=== PATIENT | female | born 1940 | race Caucasian/White ===

== ENCOUNTER → 2018-04-29 | Emergency (ER) | payer OTHER ==
[~2018-04-29] VITALS: Ht 167.6 cm; Wt 71.7 kg
[~2018-04-29] MED LIST: ACULAR1 DROP OS; ADULT LOW DOSE81 MG PO; ASPIR 8181 MG PO; CITALOPRAM HBR10 MG PO; COMPOUND DRUG; CYCLOBENZAPRINE5 MG PO; ESTRACE0.5 MG PO; LEVOTHYROXINE25 MCG PO; LIPITOR40 MG PO; MEDROL4 MG PO; MELOXICAM7.5 MG PO; METOPROLOL TART50 MG PO; NORCO 5-325 TA1 EACH PO; OCUFLOX5 ML OPTH; PROGESTERONE; ZOFRAN ODT4 MG PO
--- OUTSIDE RECORDS SUMMARY | ~2018-04-29 | XMS | Clinical Summary ---
Demographics + + + | Address | [address] | | | [place] [address] | + + + | Home Phone | | + + + | Preferred Language | Unknown | + + + | Marital Status | | + + + | Hindu Affiliation | 1041 | + + + | Race | Unknown | + + + | Ethnic Group | Unknown | + + + Author + + + | Author | [facility] | + + + | Organization | [facility] | + + + | Address | Unknown | + + + | Phone | Unavailable | + + + Support + + + + + | Name | Relationship | Address | Phone | + + + + + | Viri | ECON | [address] | | | [place] | | [place] | | | | | [phone] | | + + + + + | Raissa Barnes | ECON | Unknown | | + + + + + Care Team Providers + +------+ + | Care Contact Center Agent Name | Role | Phone | + +------+ + | Yasmin Haas PA-C | PP | | + +------+ + Allergies + + + + + + | Active Allergy | Reactions | Severity | Noted | Comments | | | | | Date | | + + + + + + | Sulfa Antibiotics | Swelling | Medium | 04/29/20 | | | | | | 14 | | + + + + + + Current Medications + + +--------+---------+------+------+-------+ | Prescription | Sig. | Disp. | Refills | Star | End | Statu | | | | | | t | Date | s | | | | | | Date | | | + + +--------+---------+------+------+-------+ | Multiple Vitamin | Take 1 capsule by | | | | | Activ | | (MULTIVITAMIN) | mouth daily. | | | | | e | | capsule | | | | | | | + + +--------+---------+------+------+-------+ | progesterone | Apply 0.625 mLs | | | | | Activ | | micronized in | topically daily. 100 | | | | | e | | hormone cream base | mg/mL cream - apply | | | | | | | | 1/8 teaspoon on arm | | | | | | | | daily | | | | | | + + +--------+---------+------+------+-------+ | aspirin EC 325 MG | Take 1 tablet by | 30 | 11 | 04/10 | | Activ | | EC tablet | mouth nightly. | tablet | | 01/26 | | e | | | | | | 14 | | | + + +--------+---------+------+------+-------+ | Acetaminophen 650 | Take by mouth. | | | | | Activ | | MG TABS | | | | | | e | + + +--------+---------+------+------+-------+ | oxycodone (OXY-IR) | Take 5 mg by mouth | | | | | Activ | | 5 MG capsule | every 4 (four) hours | | | | | e | | | as needed. | | | | | | + + +--------+---------+------+------+-------+ | estriol-estradiol | Apply topically | | | | | Activ | | (BIEST 50-50) 50-50 | daily. Apply 0.25 mL | | | | | e | | cream | (1 click) of a 1 | | | | | | | | mg/mL preparation | | | | | | | | topically to thin | | | | | | | | skinned area daily. | | | | | | + + +--------+---------+------+------+-------+ | progesterone | Place 100 mg | | | | | Activ | | (ENDOMETRIN) 100 MG | vaginally 2 (two) | | | | | e | | vaginal insert | times daily. | | | | | | + + +--------+---------+------+------+-------+ | simvastatin | Take 1 tablet by | 90 | 3 | 10/2 | | Activ | | (ZOCOR) 40 MG | mouth nightly. | tablet | | 2/20 | | e | | tabletIndications: | | | | 14 | | | | CAD (coronary artery | | | | | | | | disease) | | | | | | | + + +--------+---------+------+------+-------+ | metoprolol | Take 1 tablet by | 90 | 3 | 10/2 | | Activ | | (TOPROL-XL) 50 MG 24 | mouth daily. | tablet | | 2/20 | | e | | hr | | | | 14 | | | | tabletIndications: | | | | | | | | CAD (coronary artery | | | | | | | | disease) | | | | | | | + + +--------+---------+------+------+-------+ Active Problems + + + | Problem | Noted Date | + + + | CAD (coronary artery disease) | 05/30/2014 | + + + + + | Last Assessment & Plan: Recent NSTEMI s/p CABG X3 CRAIN to | | LAD, SVG to Diag and OM [facility]2014 [facility] | re[facility]Feels improved- still have some tenderness from the surgical | | siteLV EF normal Continue ASA, Statin.Will change Metoprolol to | | Toprol XL 50mg dailyCounseled diet, exercise, physical | | activity.She is from [place], [place] and will be finding a | | agate setter there for her chronic needs.Will f/u with me as | | needed. | |Will f/u with me as needed. | | | + + + + + | NSTEMI (non-ST elevated myocardial infarction) | 04/29/2014 | + + + | History of COPD | 04/29/2014 | + + + | Atypical chest pain | 04/29/2014 | + + + | Elevated blood pressure reading without diagnosis of hypertension | 04/29/2014 | + + + | Cardiac enzymes elevated | 04/29/2014 | + + + Encounters +--------+ + + + + | Date | Type | Specialty | Care Team | Description | +--------+ + + + + | 04/06/ | Documentati | | Brenda Trujillo, | | | 2017 | on Only | | MD | | +--------+ + + + + from Last 3 Months Family History + + +------+ + | Medical History | Relation | Name | Comments | + + +------+ + | Heart disease | Father | | | + + +------+ + | Stroke | Father | | | + + +------+ + | Heart disease | Mother | | | + + +------+ + + +------+--------+ + | Relation | Name | Status | Comments | + +------+--------+ + | Father | | | | + +------+--------+ + | Mother | | | | + +------+--------+ + Social History + +-------+ +--------+------+ | Tobacco Use | Types | Packs/Day | Years | Date | | | | | Used | | + +-------+ +--------+------+ | Former Smoker | | 0.5 | 20 | | + +-------+ +--------+------+ + + | Comments: quit about 30 yrs ago | + + + + +---------+ + | Alcohol Use | Drinks/We | oz/Week | Comments | | | ek | | | + + +---------+ + | Yes | 1 | 1.2 | nightly | | | Glasses | | | | | of wine | | | | | 1 Shots | | | | | of liquor | | | + + +---------+ + + + + | Sex Assigned at | Date Recorded | | | | + + + | Not on file | | + + + Last Filed Vital Signs + + + + | Vital Sign | Reading | Time Taken | + + + + | Blood Pressure | 118/68 | 05/30/2014 1:35 PM PDT | + + + + | Pulse | 86 | 05/30/2014 1:35 PM PDT | + + + + | Temperature | 35.9 C (96.7 F) | 05/23/2014 12:44 PM PDT | + + + + | Respiratory Rate | 16 | 05/08/2014 11:47 AM PDT | + + + + | Oxygen Saturation | 98% | 05/30/2014 1:35 PM PDT | + + + + | Inhaled Oxygen | - | - | | Concentration | | | + + + + | Weight | 67.1 kg (148 lb) | 05/30/2014 1:35 PM PDT | + + + + | Height | 165.1 cm (5' 5") | 05/30/2014 1:35 PM PDT | + + + + | Body Mass Index | 24.63 | 05/30/2014 1:35 PM PDT | + + + + Plan of Treatment +--------+ + + + + | Date | Type | Specialty | Care Team | Description | +--------+ + + + + | 12/28/ | Initial | | Brenda Trujillo, | | | 2019 | consult | | MD [address] | | | | | | [address] [place], | | | | | | [place] [address] | | | | | | [phone] | | | | | | | | +--------+ + + + + + + + + + | Health Maintenance | Due Date | Last Done | Comments | + + + + + | Vaccine: | | | | | Dtap/Tdap/Td (1 - | 1 | | | | Tdap) | | | | + + + + + | Vaccine: Zoster (1 | | | | | of 2) | 2 | | | + + + + + | DEXA SCAN SCREENING | | | | | | 7 | | | + + + + + | Vaccine: | | | | | Pneumococcal 65+ | 7 | | | | Low/Medium Risk (1 | | | | | of 2 - PCV13) | | | | + + + + + | Vaccine: Influenza | | | | | (#1) | 8 | | | + + + + + Implants + +------+-------+ +--------+--------+--------+ | Implanted | Type | Area | Manufacture | Device | Expira | Model | | | | | r | | tion | / | | | | | | Identi | Date | Serial | | | | | | fier | | / Lot | + +------+-------+ +--------+--------+--------+ | Pacing Wire Dual | | N/A: | [employer] | | 01/21/ | 030-00 | | 030-005 - [id number]: | | Heart | | | 2019 | | | Qty: 1 on 04/29/2014 by | | | | | | | | Aida Myles MD | | | | | | /[id number] | + +------+-------+ +--------+--------+--------+ Results Not on filefrom Last 3 Months Insurance + +--------+ +--------+-------+---------+ | Payer | Benefi | Subscriber | Type | Phone | Address | | | t Plan | ID | | | | | | / | | | | | | | Group | | | | | + +--------+ +--------+-------+---------+ | [place] [id number] | Medica | | | | | MODA | | re | | | | | | | | | | | | | | | | | | | | | | | | | | | | | | | | | | | | | | | | [place] - | | | | | | | MOD[place] | | | | | + +--------+ +--------+-------+---------+ + +--------+ +--------+ + + | Guarantor Name | Accoun | Relation to | Date | Phone | Billing Address | | | t Type | Patient | of | | | | | | | | | | + +--------+ +--------+ + + | TERESITA PATE | Person | Self [birth year] | Home: | [address] [place] [address] | | J | al/Fam | | 1940 | [phone] | [place] | | | bella | | | [birth year] | [phone] | + +--------+ +--------+ + +
--- OUTSIDE RECORDS SUMMARY | ~2018-04-29 | XMS | Clinical Summary ---
Demographics + + + | Address | [address] | | | [place] [address] | + + + | Home Phone | | + + + | Preferred Language | Unknown | + + + | Marital Status | | + + + | Sikhism Affiliation | 1041 | + + + | Race | Unknown | + + + | Ethnic Group | Unknown | + + + Author + + + | Author | [facility] | + + + | Organization | [facility] | + + + | Address | Unknown | + + + | Phone | Unavailable | + + + Support + + + + + | Name | Relationship | Address | Phone | + + + + + | Viri | ECON | [address] | | | [place] | | [place] | | | | | [address] | | + + + + + | Raissa Barnes | ECON | Unknown | | + + + + + Care Team Providers + +------+ + | Care Rn Admission Name | Role | Phone | + [...] exercise, physical | | activity.She is from [place], [place] and will be finding a | | podiatry professor there for her chronic needs.Will f/u with [...] | | | | | | Dr [address], | | | | | | [place] [address] | | | | | | [phone] | | | | | | | [...] 01/21/ | 030-00 | | 030-005 - [id number]: | | Heart | | | 2019 [...] [place] - MODA | [place] - | [id number] | Medica | | | | | [...] | Self | [birth year] | Home: | [address] [place] [address] | | J | al/Fam | | 1940 | [phone] | [place] | | | bella | | | [birth year] | [phone] | + +--------+ +--------+ + +
--- OUTSIDE RECORDS SUMMARY | ~2018-04-29 | XMS | Encounter Summary ---
Demographics + + + | Address | [address] | | | [place] [address] | + + + | Home Phone | | + + + | Preferred Language | Unknown | + + + | Marital Status | | + + + | Buddhism Affiliation | 1041 | + + + | Race | Unknown | + + + | Ethnic Group | Unknown | + + + Author + + + | Author | [facility] | + + + | Organization | [facility] | + + + | Address | Unknown | + + + | Phone | Unavailable | + + + Support + + + + + | Name | Relationship | Address | Phone | + + + + + | Viri | ECON | [address] | | | [place] | | [place] | | | | | [address] | | + + + + + | Raissa Barnes | ECON | Unknown | | + + + + + Care Team Providers + +------+ + | Care Manager Community Development Name | Role | Phone | + +------+ + | Yasmin Haas PA-C | PCP | | + +------+ + Encounter Details +--------+ + + + + | Date | Type | Department | Care Team | Description | +--------+ + + + + | 04/06/ | Documentati | [facility] | Brenda Trujillo, | | | 2018 | on Only | [facility] | [address] | | | | | [address] | [address] [place], | | | | | [place], [place] | [place] [address] | | | | | [address] | [phone] | | | | | [phone] | | | +--------+ + + + + Social History + +-------+ +--------+------+ | [...] on file | | + + + as of this encounter Plan of Treatment +--------+ + + + + | Date | Type | Specialty | Care Team | Description | +--------+ + + + + | 12/28/ | Initial | Cardiology | Brenda Trujillo, | | | 2019 | consult | | MD [address] | | | | | | Dr [address], | | | | | | [place] [address] | | | | | | [phone] | | | | | | | | +--------+ + + + + as of this encounter Visit Diagnoses Not on filein this encounter"
--- OUTSIDE RECORDS SUMMARY | ~2018-04-29 | XMS | Clinical Summary ---
Demographics + + + | Address | [address] | | | [place] [address] | + + + | Home Phone | | + + + | Preferred Language | Unknown | + + + | Marital Status | | + + + | Caodaism Affiliation | Unknown | + + + | Race | Unknown | + + + | Ethnic Group | Unknown | + + + Author + + + | Author | [facility] | | | and [place] | + + + | Organization | [facility] | | | and [place] | + + + | Address | Unknown | + + + | Phone | Unavailable | + + + Support + + +---------+ + | Name | Relationship | Address | Phone | + + +---------+ + | Jarrod Meredith | ECON | Unknown | | + + +---------+ + Care Team Providers + +------+ + | Care Armature Winder Helper Repair Name | Role | Phone | + +------+ + | Vanessa Ruby DNP | PP | | + +------+ + Allergies + + + + + + | Active Allergy | Reactions | Severity | Noted | Comments | | | | | Date | | + + + + + + | Sulfa Antibiotics | Swelling | Medium | 04/09/20 | | | | | | 10 | | + + + + + + Current Medications + + +--------+---------+------+------+-------+ | Prescription | Sig. | Disp. | Refills | Star | End | Statu | | | | | | t | Date | s | | | | | | Date | | | + + +--------+---------+------+------+-------+ | nitroglycerin | Place 0.4 mg under | | | | | Activ | | (NITROSTAT) 0.4 mg | the tongue every 5 | | | | | e | | SL tablet | minutes as needed | | | | | | | | for Chest pain. | | | | | | + + +--------+---------+------+------+-------+ | aspirin 81 mg EC | Take 81 mg by mouth | | | | | Activ | | tablet | Daily. | | | | | e | + + +--------+---------+------+------+-------+ | tocopherol | Take 400 Units by | | | | | Activ | | (VITAMIN E) 400 | mouth Daily. | | | | | e | | units capsule | | | | | | | + + +--------+---------+------+------+-------+ | selenium 50 MCG | Take 50 mcg by mouth | | | | | Activ | | TABS | Daily. | | | | | e | + + +--------+---------+------+------+-------+ | citalopram | Take 1 tablet by | 90 | 3 | 07/0 | | Activ | | (CELEXA) 10 mg | mouth Daily. | tablet | | 5/20 | | e | | tabletIndications: | | | | 17 | | | | Reactive depression | | | | | | | + + +--------+---------+------+------+-------+ | estradiol | Take 1 tablet by | 90 | 3 | 07/0 | | Activ | | (ESTRACE) 0.5 mg | mouth Daily. | tablet | | 5/20 | | e | | tabletIndications: | | | | 17 | | | | Post menopausal | | | | | | | | syndrome | | | | | | | + + +--------+---------+------+------+-------+ | metoprolol | TAKE ONE TABLET BY | 90 | 0 | 08/0 | | Activ | | succinate | MOUTH ONE TIME DAILY | tablet | | 2/20 | | e | | (TOPROL-XL) 50 mg 24 | | | | 17 | | | | hr tablet | | | | | | | + + +--------+---------+------+------+-------+ | atorvaSTATin | Take one tablet by | 90 | 0 | 08/0 | | Activ | | (LIPITOR) 40 mg | mouth nightly | tablet | | 2/20 | | e | | tablet | | | | 17 | | | + + +--------+---------+------+------+-------+ Active Problems + + + | Problem | Noted Date | + + + | Pre-diabetes | 05/13/2016 | + + + + + | Overview: 05/13/2016: A1c 6.1 this check. Education provided | | about pathophysiology of pre-diabetes with education on nutrition | | and lifestyle both verbally and written Patient would like to | | try to manage with diet and exercise. Goals discussed in office. | | Will recheck in 6-8 weeks prior to her leaving for the winter. | | Last Assessment & Plan: 05/13/2016: A1c 6.1 this check. | | Education provided about pathophysiology of pre-diabetes with | | education on nutrition and lifestyle both verbally and written | | Patient would like to try to manage with diet and exercise. | | Goals discussed in office. Will recheck in 6-8 weeks prior to | | her leaving for the winter. | + + + + + | Chronic right-sided low back pain without sciatica | 05/13/2016 | + + + + + | Overview: 05/13/2016: Patient states she has back pain that | | starts in her back and wraps around her iliac crest into her | | groin at times. Lumbar sacrum area. Patient describes as more | | of annoyance than actual pain. Patient open to the idea of PT | | for back pain. Prescription written. Will monitor Last | | Assessment & Plan: 05/13/2016: Patient states she has back pain | | that starts in her back and wraps around her iliac crest into her | | groin at times. Lumbar sacrum area. Patient describes as more | | of annoyance than actual pain. Patient open to the idea of PT | | for back pain. Prescription written. Will monitor | + + + + + | Chronic renal failure, stage 3 (moderate) | 05/13/2016 | + + + + + | Overview: 06/23/2016: Noted in most recent lab draws that pt | | has GFR at 46. Pt has increased water intake and will continue to | | do so. Will monitor. Last Assessment & Plan: 06/23/2016: | | Noted in most recent lab draws that pt has GFR at 46. Pt has | | increased water intake and will continue to do so. Will monitor. | + + + + + | Hypothyroidism due to acquired atrophy of thyroid | 03/25/2016 | + + + + + | Overview: 06/24/2016: Pt stopped taking 12.5 mcg of | | levothyroxine 1 month ago after seeing personal computer network engineer. She had | | diarrhea since starting levothyroxine and even lower dose still | | had. Health Safety Coordinator recommended stopping. Pt levels now; TSH-4.365 | | and Free T4-0.7. Written order to have drawn in October were | | provided. When she returns from winter travel, she will consider | | seeing Dr. Lev luna [place] who uses alternative medications she | | may tolerate better. Education on symptoms of hypothyroidism | | provided. Last Assessment & Plan: 06/24/2016: Pt stopped | | taking 12.5 mcg of levothyroxine 1 month ago after seeing | | personal computer network engineer. She had diarrhea since starting levothyroxine and | | even lower dose still had. Health Safety Coordinator recommended stopping. Pt | | levels now; TSH-4.365 and Free T4-0.7. Written order to have | | drawn in October were provided. When she returns from winter | | travel, she will consider seeing Dr. Lev luna [place] who uses | | alternative medications she may tolerate better. Education on | | symptoms of hypothyroidism provided. | + + + + + | Change in mole | 03/25/2016 | + + + + + | Overview: 03/25/16: Noted multiple moles to lateral right | | side- one near where she had a chest tube at one point to drain | | fluid off of her lung which is new and has multiple colors to it. | | She also has a skin lesion to midline back that is new. Will | | refer to Dr. Garnica in [place]. Last Assessment & Plan: | | 03/25/16: Noted multiple moles to lateral right side- one near | | where she had a chest tube at one point to drain fluid off of her | | lung which is new and has multiple colors to it. She also has a | | skin lesion to midline back that is new. Will refer to | | Danika in [place]. | + + + + + | Deformity of sternum | 03/25/2016 | + + + + + | Overview: 05/13/2016: Patient requests referral to PT. | | Prescription given to patient. Will monitor. Last Assessment | | & Plan: 05/13/2016: Patient requests referral to PT. | | Prescription given to patient. Will monitor. | + + + + + | Linda infection | 03/25/2016 | + + + + + | Overview: 03/25/2016: Noted reddened rash under bilateral | | breasts today during exam- she states she is moist there a lot of | | the time and this comes and goes. Education provided regarding | | keeping area dry and use of Calmoseptine and nystatin topical | | powder. Will monitor. Last Assessment & Plan: 03/25/2016: | | Noted reddened rash under bilateral breasts today during exam- | | she states she is moist there a lot of the time and this comes | | and goes. Education provided regarding keeping area dry and use | | of Calmoseptine and nystatin topical powder. Will monitor. | + + + + + | Vitamin D deficiency | 02/21/2016 | + + + + + | Overview: 03/25/2016: Most recent labs show 21. Will begin | | 5,000 IU daily OTC and recheck with annual labs. Last | | Assessment & Plan: 03/25/2016: Most recent labs show 21. Will | | begin 5,000 IU daily OTC and recheck with annual labs. | + + + + + | Preventative health care | 01/21/2016 | + + + + + | Overview: 03/25/16: wellness today. Labs UTD. | | Colonoscopy-never and refuses. DEXA scan due- Will order today. | | Mammogram due- will order today- she has agreed to go. Last | | Assessment & Plan: 03/25/16: wellness today. Labs UTD. | | Colonoscopy-never and refuses. DEXA scan due- Will order today. | | Mammogram due- will order today- she has agreed to go. | + + + +---+ | Myocardial infarction (HCC) | | + +---+ + + | Overview: 03/25/2016: Monitored and cared for by Dr. 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 Will | | monitor. Last Assessment & Plan: 03/25/16: Controlled on | | current medication. Will monitor. | + + + +---+ | Hyperlipidemia | | + +---+ + + | Overview: 03/25/2016: Most recent labs: Triglycerides 175, | | Total 232, Good cholesterol 89, Risk ratio 2.6. Discussed dietary | | and lifestyle. Continue current RX. Last Assessment & Plan: | | 03/25/2016: Most recent labs: Triglycerides 175, Total 232, Good | | cholesterol 89, Risk ratio 2.6. Discussed dietary and lifestyle. | | Continue current RX. | + + + +---+ | Depression | | + +---+ + + | Overview: 03/25/2016: Controlled on current medication. She | | does get down every once in a while with life stressors and | | looking into moving, but "thats normal I think." Will monitor. | | Last Assessment & Plan: 03/25/2016: Controlled on current | | medication. She does get down every once in a while with life | | stressors and looking into moving, but "thats normal I think." | | Will monitor. | + + + +---+ | Post menopausal syndrome | | + +---+ + + | Overview: 03/25/16: Hot-flashes are controlled on current | | medication. Will monitor. Last Assessment & Plan: 03/25/16: | | Hot-flashes are controlled on current medication. Will monitor. | + + Resolved Problems + + + + | Problem | Noted | Resolved | | | Date | Date | + + + + | Acute non-recurrent pansinusitis | 01/21/20 | | | | 16 | 6 | + + + + + + | Overview: 01/21/2016: Over past 3 weeks has had congestion, | | sinus pressure, ear pressure, no fevers,-but chills, sore | | throat-cleared now. Augmentin 875 mg BID x 10 days. Last | | Assessment & Plan: 01/21/2016: Over past 3 weeks has had | | congestion, sinus pressure, ear pressure, no fevers,-but chills, | | sore throat-cleared now. Augmentin 875 mg BID x 10 days. | + + Family History + + + + + | Medical History | Relation | Name | Comments | + + + + + | No Known Problems | Daughter | 1964 | | + + + + + | Heart disease | Father | @ age 78 | First [place] @ age 45 | + + + + + | Stroke | Father | @ age 78 | | + + + + + | Heart disease | Maternal | | | | | Grandfath | | | | | er | | | + + + + + | Heart disease | Maternal | | | | | Grandmoth | | | | | er | | | + + + + + | Heart disease | Mother | @ age 79 | CHF | + + + + + | High blood pressure | Mother | @ age 79 | | + + + + + | Obesity | Mother | @ age 79 | | + + + + + | Heart disease | Paternal | | | | | Grandfath | | | | | er | | | + + + + + | No Known Problems | Son | 1965 | | + + + + + + + + + + | Relation | Name | Status | Comments | + + + + + | Daughter | 1964 | Alive | | + + + + + | Father | @ age 78 | | | + + + + + | Maternal Grandfather | | | | + + + + + | Maternal Grandmother | | | | + + + + + | Mother | @ age 79 | | | + + + + + | Paternal Grandfather | | | | + + + + + | Paternal Grandmother | Unknown | Alive | | + + + + + | Son | 1965 | Alive | | + + + + + Social History + + + +--------+ + | Tobacco Use | Types | Packs/Day | Years | Date | | | | | Used | | + + + +--------+ + | Former Smoker | Cigarettes | 0.75 | 32 | Quit: 01/20/1995 | + + + +--------+ + + +---+---+---+ | Smokeless Tobacco: | | | | | Never Used | | | | + +---+---+---+ + + +---------+ + | Alcohol Use | Drinks/We | oz/Week | Comments | | | ek | | | + + +---------+ + | Yes | 0 | 0.0 | 1 drink or glass of wine nightly | | | Standard | | | | | drinks or | | | | | | | | | | equivalen | | | | | t | | | + + +---------+ + + + + | Sex Assigned at | Date Recorded | | | | + + + | Not on file | | + + + Last Filed Vital Signs + + + + | Vital Sign | Reading | Time Taken | + + + + | Blood Pressure | 122/68 | 06/23/2016 1405 MST | + + + + | Pulse | 64 | 06/23/20161404 MST | + + + + | Temperature | 35.8 C (96.5 F) | 06/23/20161404 MST | + + + + | Respiratory Rate | 18 | 06/23/20161404 MST | + + + + | Oxygen Saturation | 96% | 06/23/20161404 MST | + + + + | Inhaled Oxygen | - | - | | Concentration | | | + + + + | Weight | 72.6 kg (160 lb) | 06/23/20161404 MST | + + + + | Height | 167.6 cm (5' 6") | 06/23/20161404 MST | + + + + | Body Mass Index | 25.82 | 06/23/20161404 MST | + + + + Plan of Treatment + + + + + | Health [...] 65+ | 7 | | | | High/Highest Risk (1 | | | | | of 2 - PCV13) | | | | + + + + + | PRIMARY CARE | | 03/25/2016 | | | OUTREACH-INTENSE | 6 | | | | RISK EVERY 3 MONTHS | | | | + + + + + | Vaccine: Influenza | | | | | (#1) | 8 | | | + + + + + | Colorectal Cancer | | | Postponed from | | Screening | 6 | | 1992 (Patient | | (Colonoscopy) | | | Declined) | + + + + + Results Not on filefrom Last 3 Months Insurance + +--------+ +--------+-------+---------+ | Payer | Benefi | Subscriber | Type | Phone | Address | | | t Plan | ID | | | | | | / | | | | | | | Group | | | | | + +--------+ +--------+-------+---------+ | [place] [id number] | [place] | [place] | | | | | MEDAD[place] | | | | | | | MDCR | | | | | | | HMO | | | | | + +--------+ +--------+-------+---------+ + +--------+ +--------+ + + | Guarantor Name | Accoun | Relation to | Date | Phone | Billing Address | | | t Type | Patient | of | | | | | | | | | | + +--------+ +--------+ + + | CARLY MEREDITH | Person | Self [birth year] | Home: | [address] | | | al/Fam | | 1940 | [phone] | [place] [address] | | | bella | | | [address] | | + +--------+ +--------+ + +
--- OUTSIDE RECORDS SUMMARY | ~2018-04-29 | XMS | Encounter Summary ---
Demographics + + + | Address | [address] | | | [place] [address] | + + + | Home Phone | | + + + | Preferred Language | Unknown | + + + | Marital Status | | + + + | Methodist Affiliation | 1041 | + + + | Race | Unknown | + + + | Ethnic Group | Unknown | + + + Author + + + | Author | [facility] | + + + | Organization | [facility] | + + + | Address | Unknown | + + + | Phone | Unavailable | + + + Support + + + + + | Name | Relationship | Address | Phone | + + + + + | Viri | ECON | [address] | | | [place] | | [place] | | | | | [phone] | | + + + + + | Raissa Barnes | ECON | Unknown | | + + + + + Care Team Providers + +------+ + | Care Chocolate Coater Name | Role | Phone | + [...] | | [address] | [address] [place], | | | | | [place], [place] | [place] [address] | | | | | [address] | [phone] | | | | | [phone] | | | +--------+ + + + [...] [place], | | | | | | [place] [address] | | | | | | [phone] | | | | | | | | +--------+ + + + + as of this encounter Visit Diagnoses Not on filein this encounter"
--- OUTSIDE RECORDS SUMMARY | ~2018-04-29 | XMS | Clinical Summary ---
Demographics + + + | Address | [address] | | | [place] [address] | + + + | Home Phone | | + + + | Preferred Language | Unknown | + + + | Marital Status | | + + + | Confucianist Affiliation | Unknown | + + + | Race | Unknown | + + + | Ethnic Group | Unknown | + + + Author + + + | Author | [facility] | | | and [place] | + + + | Organization | [facility] | | | and [...] Team Providers + +------+ + | Care Lighting Director Name | Role | Phone | + [...] | levothyroxine 1 month ago after seeing merry go round operator. She had | | diarrhea since starting levothyroxine and even lower dose still | | had. Bonded Strand Operator recommended stopping. Pt levels now; TSH-4.365 | | and Free T4-0.7. Written order to have drawn in October were | | provided. When she returns from winter travel, she will consider | | seeing Dr. Lev luna [place] who uses alternative medications she | | may tolerate better. Education on symptoms of hypothyroidism | | provided. Last Assessment & Plan: 06/24/2016: Pt stopped | | taking 12.5 mcg of levothyroxine 1 month ago after seeing | | merry go round operator. She had diarrhea since starting levothyroxine and | | even lower dose still had. Bonded Strand Operator recommended stopping. Pt | | levels now; TSH-4.365 and Free T4-0.7. Written order to have | | drawn in October were provided. When she returns from winter | | travel, she will consider seeing Dr. Lev luna [place] who uses | | alternative medications she [...] | | refer to Dr. Garnica in [place]. Last Assessment & Plan: | | 03/25/16: [...] Will refer to | | Danika in [place]. | + + + + + | [...] for by Dr. 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
== END ==
LOC: ED 09:46
DX: S39.012A Strain of muscle, fascia and tendon of lower back, initial encounter (principal); I10 Essential (primary) hypertension; Z79.899 Other long term (current) drug therapy; Z88.2 Allergy status to sulfonamides; X58.XXXA Exposure to other specified factors, initial encounter
CPT/HCPCS: 80053; 81001; 83690; 85025; 96374; 96375; 99283; J1100; J1170; J1885; J2405; J7030

== ENCOUNTER 2025-04-02 12:30 | Emergency (ER) | payer MEDICARE, OTHER ==
[~2025-04-02] VITALS: Ht 167.6 cm; Wt 69.0 kg
--- NOTE | ~2025-04-02 | EKG ---
[facility] [address] [facility], [place] [address] Draft EK completed, results pending confirmation PATIENT NAME: MORIS PATE Electrocardiogram DATE OF : 44 PHYSICIAN: PRELIMINARY REPORT #: [id number] REPORT IS CONFIDENTIAL AND NOT TO BE RELEASED WITHOUT AUTHORIZATION
[2025-04-02] MEDS ORDERED: SYNTHROID50 MCG PO (12:53)
[2025-04-02] MEDS ORDERED: METOPROLOL SUCC25 MG PO (12:54)
[2025-04-02 13:03] LABS: BASOPHILS 0.2 % (0.1-1.2); EOSINOPHILS 1.5 % (0.7-5.8); LYMPHOCYTES 40.9 % (19.3-51.7); MCH 29.1 PG (25.6-32.2); MCHC 33.0 g/dL (32.2-35.5); MCV 88.2 fL (79.4-94.8); MONOCYTES 24.0 % (4.7-12.5); NEUTROPHILS 32.9 % (34.0-71.1); RBC 3.98 M/uL (3.93-5.22)
[2025-04-02 13:14] LABS: INR 0.99 (0.80-1.30); PROTIME 12.4 Sec (11.2-14.2)
[2025-04-02 13:21] LABS: ALT (SGPT) 11.0 U/L (14-59); AST (SGOT) 12.0 U/L (15-37); GLOMERULAR FILTRATION RATE,EST 51.0 mL/min (>60); PROTEIN, TOTAL 7.6 g/dL (6.4-8.2); UREA NITROGEN 18.0 mg/dL (7-18)
[2025-04-02] MEDS ORDERED: SODIUM CHLORIDE 0.9% 1,000 ML IV PRN (13:45)
[2025-04-02] MEDS ORDERED: ASPIRIN 81 MG CHEW PO ONE (20:45)
[2025-04-02 20:47] VITALS: BP 186/86
== END 2025-04-02 20:59 | disposition short-term general hospital (02) ==
LOC: ED 12:30
PROVIDERS: Emergency Medicine
DX: I63.233 Cerebral infarction due to unspecified occlusion or stenosis of bilateral carotid arteries (principal); I63.212 Cerebral infarction due to unspecified occlusion or stenosis of left vertebral artery; G81.94 Hemiplegia, unspecified affecting left nondominant side; D69.6 Thrombocytopenia, unspecified; I10 Essential (primary) hypertension; I25.10 Atherosclerotic heart disease of native coronary artery without angina pectoris; J44.9 Chronic obstructive pulmonary disease, unspecified; E03.9 Hypothyroidism, unspecified; Z88.2 Allergy status to sulfonamides; Z79.890 Hormone replacement therapy; Z79.82 Long term (current) use of aspirin; Z95.1 Presence of aortocoronary bypass graft
CPT/HCPCS: 36415; 70496; 70498; 71045; 71260; 80053; 84484; 85025; 85610; 85730; 93005; 93010; 93242; 93244; 99285-25; A9270; J7030; Q9967

== ENCOUNTER 2025-05-15 12:55 | Emergency (ER) | payer MEDICARE, OTHER ==
[~2025-05-15] VITALS: Ht 167.6 cm; Wt 68.3 kg
[~2025-05-15 12:55] MED LIST changes: +METOPROLOL SUCC25 MG PO; +SYNTHROID50 MCG PO
[2025-05-15 13:35] LABS: BASOPHILS 0.2 % (0.1-1.2); EOSINOPHILS 1.4 % (0.7-5.8); LYMPHOCYTES 31.4 % (19.3-51.7); MCH 29.9 PG (25.6-32.2); MCHC 33.2 g/dL (32.2-35.5); MCV 89.9 fL (79.4-94.8); MONOCYTES 20.7 % (4.7-12.5); NEUTROPHILS 45.7 % (34.0-71.1); RBC 3.55 M/uL (3.93-5.22)
[2025-05-15 14:07] LABS: ALT (SGPT) 17.0 U/L (14-59); AST (SGOT) 15.0 U/L (15-37); GLOMERULAR FILTRATION RATE,EST 40.0 mL/min (>60); PROTEIN, TOTAL 7.3 g/dL (6.4-8.2); UREA NITROGEN 21.0 mg/dL (7-18)
[2025-05-15 14:25] VITALS: BP 159/67
--- NOTE | 2025-05-17 14:59 | EKG ---
[facility] [address] [place] [address] Signed Normal sinus rhythm Nonspecific intraventricular conduction delay Minimal voltage criteria for LVH, may be normal variant ( Otis product ) Nonspecific T wave abnormality Abnormal ECG When compared with ECG of 15-MAY-2025 11:56, (Unconfirmed) performed during stress test, not in our system ST no longer elevated in Inferior leads ST no longer elevated in Lateral leads Confirmed by Karyn Sexton MD () on 05/17/2025 2:59:28 PM Electronically Signed By: KARYN SEXTON MD 05/17/25 1459 PATIENT NAME: MORIS PATE Electrocardiogram DATE OF : 44 PHYSICIAN: KARYN SEXTON MD REPORT #: [id number] REPORT IS CONFIDENTIAL AND NOT TO BE RELEASED WITHOUT AUTHORIZATION
== END 2025-05-15 14:25 | disposition home or self-care (01) ==
LOC: ED 12:55
PROVIDERS: Emergency Medicine
DX: R94.31 Abnormal electrocardiogram [ECG] [EKG] (principal); I10 Essential (primary) hypertension; I25.10 Atherosclerotic heart disease of native coronary artery without angina pectoris; I25.2 Old myocardial infarction; J43.9 Emphysema, unspecified; Z95.1 Presence of aortocoronary bypass graft; Z88.2 Allergy status to sulfonamides; Z79.890 Hormone replacement therapy; Z79.82 Long term (current) use of aspirin; Z79.899 Other long term (current) drug therapy
CPT/HCPCS: 36415; 71045; 80053; 83880; 84484; 85025; 93005; 93010; 99285-25